=== PATIENT | female | born 1970 | race Caucasian/White ===

== ENCOUNTER 2022-04-26 07:02 | Observation (INO) ==
[2022-04-26 08:31] LABS: Basophils % 0.2 % (0.0-0.8); Eosinophils % 0.2 % (0.00-10.9); Hematocrit 43.4 VOL% (35.7-47.0); Hemoglobin 14.5 GM/DL (12.0-16.0); Immature Granulocytes % 0.4 %; Immature Granulocytes Absolute 0.04 #; Lymphocytes # 1.3 10*3/uL (1.4-4.0); Lymphocytes % 14.2 % (21.3-54.2); Mean Corpuscular HGB Conc 33.4 GM/DL (32-36); Mean Corpuscular Volume 93.7 FL (87-102); Mean Platelet Volume 10.9 FL (9.6-12.0); Monocytes # 0.7 10*3/uL (0.11-0.8); Monocytes % 7.4 % (1.7-12.7); Neutrophils % 77.6 % (38.7-73.9); Platelet Count 304 T/CUMM (130-400); Red Blood Count 4.63 MC/CUMM (3.8-5.5); Red Cell Distribution Width 13.5 % (9.3-17.3); White Blood Count 9.2 T/CUMM (4-12)
[2022-04-26 08:52] LABS: Albumin 2.9 G/DL (3.4-5.0); Bilirubin,Total 0.4 MG/DL (0.20-1.00); Calcium 8.9 MG/DL (8.5-10.1); Osmolality,Calculated 284.3 MOS/KG (273-304); Potassium 2.7 MMOL/L (3.5-5.1); Total Protein 7.9 G/DL (6.4-8.2)
[2022-04-26] MEDS ORDERED: POTASSIUM CHLORIDE RIDER 20 MEQ/100 ML PREMIX IV STA (08:59)
[2022-04-26] MEDS ORDERED: LEVOFLOXACIN INJ 750 MG/150 ML PREMIX IV STA (09:00)
[2022-04-26] MEDS ORDERED: POTASSIUM CHLORIDE RIDER 10 MEQ/100 ML PREMIX IV ONE (09:03)
[2022-04-26] MEDS: POTASSIUM CHLORIDE RIDER 10 MEQ/100 ML PREMIX IV SCH ×2 (09:45→11:40)
[2022-04-26] MEDS ORDERED: ONDANSETRON 4 MG/2 ML VIAL IV PRN (11:19)
[2022-04-26] MEDS ORDERED: ACETAMINOPHEN 325 MG TABLET PO PRN (11:19)
[2022-04-26] MEDS ORDERED: GLUCAGON 1 MG VIAL IM PRN (11:19)
[2022-04-26] MEDS ORDERED: DEXTROSE 10% 250 ML BAG IV PRN (11:19)
[2022-04-26] MEDS ORDERED: [UNRECOGNIZED DRUG - REMARK] BOTH NARES PRN (11:21)
[2022-04-26] MEDS ORDERED: traMADol 50 MG TABLET PO PRN (11:21)
[2022-04-26] MEDS ORDERED: BUTALBITAL/ACETAMIN/CAFFEINE 50-325-40 MG TABLET PO PRN (11:21)
[2022-04-26] MEDS ORDERED: ERGOCALCIFEROL 50,000 UNIT CAPSULE PO SCH (11:30)
[2022-04-26] MEDS: POTASSIUM CHLORIDE 20 MEQ TABLET PO SCH ×4 (12:02→23:36)
[2022-04-26] MEDS: INSULIN LISPRO 100 UNIT/ML SUBCUT SCH ×3 (12:03→21:15)
[2022-04-26] MEDS: SODIUM CHLORIDE 0.9% 1,000 ML IV SCH ×2 (12:48→23:36)
[2022-04-26 16:19] LABS: Glucose,Urine (UA) Negative (Negative); Ketones,Urine 40 mg/dL (Negative); Protein,Urine 30 mg/dL (Negative); Urine Appearance Clear (Clear); Urine Color Yellow (Yellow); Urine Specific Gravity >= 1.030 (1.001-1.035)
[2022-04-26 16:20] LABS: Bilirubin,Urine Small mg/dL (Negative); Blood, Urine Small mg/dL (Negative); Nitrite,Urine Negative (Negative); Urine Urobilinogen 0.2 eU/dL (<2.0)
[2022-04-26 16:23] LABS: Mucus,Urine Moderate /LPF (Occasional); RBC,Urine 2 /HPF (0-4); Squamous Epithelial Cell,Urine Occasional /HPF (0-10)
[2022-04-26] MEDS: HydrOXYzine PAMOATE 25 MG CAPSULE PO SCH ×2 (21:14→21:38)
[2022-04-26] MEDS: SUCRALFATE 1 GM TABLET PO SCH (21:14)
[2022-04-26] MEDS: cloNIDine 0.1 MG TABLET PO SCH (21:14)
[2022-04-26] MEDS: DICLOFENAC 1% GEL 100 GM TUBE TOP SCH (21:15)
[2022-04-27 05:25] LABS: Calcium 8.2 MG/DL (8.5-10.1); Osmolality,Calculated 280.3 MOS/KG (273-304); Potassium 3.8 MMOL/L (3.5-5.1)
[2022-04-27] MEDS ORDERED: LEVOTHYROXINE 100 MCG TABLET PO SCH (06:00)
[2022-04-27 08:37] VITALS: BP 120/67
[2022-04-27] MEDS ORDERED: PREGABALIN 75 MG CAPSULE PO SCH (09:00)
[2022-04-27] MEDS ORDERED: CYANOCOBALAMIN 1000 MCG/1 ML VIAL SUBCUT SCH (09:00)
[2022-04-27] MEDS ORDERED: FLUCONAZOLE 150 MG TABLET PO SCH (09:00)
[2022-04-27] MEDS: INSULIN LISPRO 100 UNIT/ML SUBCUT SCH ×2 (09:03→13:56)
[2022-04-27] MEDS: SODIUM CHLORIDE 0.9% 1,000 ML IV SCH (09:04)
[2022-04-27] MEDS: cloNIDine 0.1 MG TABLET PO SCH (09:28)
[2022-04-27] MEDS: SUCRALFATE 1 GM TABLET PO SCH (09:28)
[2022-04-27] MEDS: HydrOXYzine PAMOATE 25 MG CAPSULE PO SCH (09:29)
[2022-04-27] MEDS: DICLOFENAC 1% GEL 100 GM TUBE TOP SCH (09:31)
[2022-04-27] MEDS ORDERED: DESITIN 4OZ/NYSTATIN 15 GRAM MIXTURE PASTE TOP SCH (11:30)
== END 2022-04-27 14:00 | disposition home or self-care (01) ==
LOC: N.EDINP 07:02 → N.ED 07:02 → N.2W 12:12
PROVIDERS: ADMIT Internal Medicine; ATTEND Internal Medicine